=== PATIENT | female | born 1960 | race Caucasian/White ===

== ENCOUNTER → 2016-09-11 | Outpatient (REF) | payer OTHER ==
[~2016-09-11] MED LIST: ADV100INH INH; ALBU17IN INH; ASPI81CH3 PO; AZEL0.1S3; BUDE180INH INH; BUSP10TA PO; CALCTAB68 PO; CLAR1TAB2 PO; COLA100C PO; EPIP0.3I2 IJ; ESTR0.5T3 TOP; FLON0.054; FOLI1TAB2 PO; HYDR12.55 PO; LEXA1TAB2 PO; MAGN1TAB25 PO; METO25TAB PO; MIRA33504 PO; MOBI7.5T10 PO; MULTCAP PO; OMEP20CA3 PO; PRED1SUS AS; PROT1TAB2 PO; RANI150T PO; SENN8.6T7 PO; SERO50TA PO; SING10TA32 PO; TRAZ50TA4 PO; ULTR50TA PO; VAGI10TA VA; VITA250T19 PO; WELLTAB40 PO; ZYRT10TA2 PO
== END ==
LOC: M SFHCSACK 10:46
PROVIDERS: ATTEND Physician Assistant
DX: Z11.59 Encounter for screening for other viral diseases (principal)

== ENCOUNTER → 2016-12-05 | Outpatient (REF) | payer OTHER ==
[~2016-12-05] MED LIST changes: -COLA100C PO; +COLA100C3 PO
[2016-12-05 15:11] LABS: RBC ADVIA BF 0.33; RBC CALC. BF 330000 (< 10mm3 cells/uL); WBC ADVIA BF 0.9; WBC CALC. BF 900 cells/uL (0-20)
[2016-12-05 15:38] LABS: BF DIFF IF INDICATED? YES (NO); SYNOVIAL FLUID COLOR RED (YELLOW)
[2016-12-05 16:42] LABS: URIC ACID 5.4 MG/DL (2.6-6.0)
[2016-12-05 16:43] LABS: BASO % 0.8 % (0.0-1.0); EOS # 0.1 K/mm3 (0.0-0.50); EOS % 2.9 % (0.0-3.0); LARGE UNSTAINED CELL # 0.1 K/mm3 (0.0-0.4); LARGE UNSTAINED CELL % 2.3 % (0.0-4.0); LYMPH # 1.2 K/mm3 (1.5-4.5); LYMPH % 37.4 % (24.0-44.0); MEAN CORPUSCULAR HEMOGLOBIN 35.2 pg (27.0-33.0); MEAN CORPUSCULAR HGB CONC 34.1 g/dl (32.0-36.5); MEAN CORPUSCULAR VOLUME 103.4 fl (80.0-96.0); MONO # 0.2 K/mm3 (0.0-0.8); MONO % 6.9 % (0.0-5.0); NEUTROPHILS # 1.5 K/mm3 (1.8-7.7); NEUTROPHILS % 49.7 % (36.0-66.0); RED CELL DISTRIBUTION WIDTH 13.4 % (11.5-14.5)
[2016-12-05 17:34] LABS: PLATELET COUNT, AUTOMATED 99 k/mm3 (150-450)
[2016-12-05 17:57] LABS: CC BF DIFF EXAM CYTOCENTRIFUGE
[2016-12-05 20:52] LABS: ERYTHROCYTE SEDIMENTATION RATE 35 mm/hr (0-30)
[2016-12-06 09:57] LABS: CRYSTALS, BODY FLUID NONE SEEN (NONE SEEN)
[2016-12-06 09:58] LABS: HCT SOURCE OTHER
[2016-12-08 00:07] LABS: Lyme Disease IgG Ab 18 kDa Ban Absent (.); Lyme Disease IgG Ab 23 kDa Ban Absent (.); Lyme Disease IgG Ab 28 kDa Ban Absent (.); Lyme Disease IgG Ab 30 kDa Ban Absent (.); Lyme Disease IgG Ab 39 kDa Ban Absent (.); Lyme Disease IgG Ab 41 kDa Ban Present (.); Lyme Disease IgG Ab 45 kDa Ban Absent (.); Lyme Disease IgG Ab 58 kDa Ban Absent (.); Lyme Disease IgG Ab 66 kDa Ban Absent (.); Lyme Disease IgG Ab 93 kDa Ban Absent (.); Lyme Disease IgG West Blot Int Negative (.); Lyme Disease IgG/IgM Antibodie <0.91 ISR (0.00-0.90); Lyme Disease IgM Ab 23 kDa Ban Present (.); Lyme Disease IgM Ab 39 kDa Ban Present (.); Lyme Disease IgM Ab 41 kDa Ban Present (.); Lyme Disease IgM Ab Quantitati 0.87 index (0.00-0.79); Lyme Disease IgM West Blot Int Positive (.)
== END ==
LOC: M LAB REF 13:57
PROVIDERS: ATTEND Orthopaedic Surgery
DX: M25.562 Pain in left knee (principal)

== ENCOUNTER → 2016-12-18 | Outpatient (REF) | payer OTHER ==
[2016-12-18 16:12] LABS: ALBUMIN 4.3 GM/DL (3.2-5.2); ALKALINE PHOSPHATASE 55 U/L (45-117); ALT/SGPT 150 U/L (12-78); ANION GAP 6 MEQ/L (8-16); AST/SGOT 103 U/L (15-37); BILIRUBIN,TOTAL 1.1 MG/DL (0.2-1.0); BLOOD UREA NITROGEN 18 MG/DL (7-18); CALCIUM LEVEL 9.3 MG/DL (8.5-10.1); CARBON DIOXIDE LEVEL 32 MEQ/L (21-32); CHLORIDE LEVEL 100 MEQ/L (98-107); CHOLESTEROL LEVEL 243 MG/DL (<200); CREATININE FOR GFR 0.78 MG/DL (0.55-1.02); GLOMERULAR FILTRATION RATE > 60.0 (>51); GLUCOSE, FASTING 96 MG/DL (70-105); POTASSIUM SERUM 4.1 MEQ/L (3.5-5.1); SODIUM LEVEL 138 MEQ/L (136-145); TOTAL PROTEIN 8.2 GM/DL (6.4-8.2); TRIGLYCERIDES LEVEL 44 MG/DL (<150)
[2016-12-18 16:36] LABS: MEAN CORPUSCULAR HEMOGLOBIN 35.2 pg (27.0-33.0); MEAN CORPUSCULAR HGB CONC 33.4 g/dl (32.0-36.5); MEAN CORPUSCULAR VOLUME 105.5 fl (80.0-96.0); RED CELL DISTRIBUTION WIDTH 13.1 % (11.5-14.5); WHITE BLOOD COUNT 3.2 K/mm3 (4.0-10.0)
== END ==
LOC: M SFHCSACK 10:32
PROVIDERS: ATTEND Physician Assistant
DX: D69.6 Thrombocytopenia, unspecified (principal); I10 Essential (primary) hypertension; E78.5 Hyperlipidemia, unspecified

== ENCOUNTER → 2017-01-03 | Outpatient (REF) | payer OTHER ==
[~2017-01-03] MED LIST changes: -COLA100C3 PO; +COLA100C5 PO; -FOLI1TAB2 PO; +FOLI1TAB4 PO; +MOBI4TAB PO; -MOBI7.5T10 PO; +TRAZ50TA11 PO; -TRAZ50TA4 PO; -ULTR50TA PO; +ULTR50TA8 PO
[2017-01-03 13:49] LABS: BASO % 1.9 % (0.0-1.0); EOS # 0.1 K/mm3 (0.0-0.50); EOS % 2.9 % (0.0-3.0); LARGE UNSTAINED CELL # 0.1 K/mm3 (0.0-0.4); LARGE UNSTAINED CELL % 3.2 % (0.0-4.0); LYMPH # 0.9 K/mm3 (1.5-4.5); LYMPH % 37.4 % (24.0-44.0); MEAN CORPUSCULAR HEMOGLOBIN 34.8 pg (27.0-33.0); MEAN CORPUSCULAR HGB CONC 33.8 g/dl (32.0-36.5); MEAN CORPUSCULAR VOLUME 102.8 fl (80.0-96.0); MONO # 0.1 K/mm3 (0.0-0.8); MONO % 4.8 % (0.0-5.0); NEUTROPHILS # 1.1 K/mm3 (1.8-7.7); NEUTROPHILS % 49.8 % (36.0-66.0); RED CELL DISTRIBUTION WIDTH 13.5 % (11.5-14.5); WHITE BLOOD COUNT 2.2 K/mm3 (4.0-10.0)
[2017-01-03 14:14] LABS: ERYTHROCYTE SEDIMENTATION RATE 38 mm/hr (0-30)
[2017-01-03 14:23] LABS: PLATELET COUNT, AUTOMATED 64 k/mm3 (150-450)
== END ==
LOC: M SFHCPLAZ 13:10
PROVIDERS: ATTEND Internal Medicine Infectious Disease
DX: A69.20 Lyme disease, unspecified (principal)

== ENCOUNTER → 2017-01-23 | Outpatient (CLI) | payer OTHER | LOC: M LAB 14:15 | PROVIDERS: ATTEND Internal Medicine Gastroenterology | DX: K70.30 Alcoholic cirrhosis of liver without ascites (principal) ==

== ENCOUNTER → 2017-01-30 | Outpatient (CLI) | payer OTHER ==
--- NOTE | 2017-01-30 10:31 | REP ---
LIMITED ABDOMINAL ULTRASOUND: 01/30/2017. COMPARISON: 03/23/2016. CLINICAL HISTORY: Alcoholic cirrhosis of liver without ascites. FINDINGS: Sonographic evaluation of the liver again shows coarsened echotexture with fatty infiltration. Liver is slightly enlarged. The left hepatic lobe is prominent. Slight lobulations of contour are consistent with chronic liver disease. The gallbladder shows no stone, sludge, wall thickening or pericholecystic fluid. Wall thickness of 2.3 mm is normal. No visible mass. Common duct is 6.4 mm without a common duct stone. Pancreas is very limited in evaluation due to gas shadowing. The right kidney 11.3 x 5.5 x 4.4 cm. 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 Linear echogenicities in the hilum suggest vascular calcifications. IMPRESSION: 1. Coarsened echotexture, fatty infiltration and enlarged liver with lobulated contours suggesting chronic liver disease, cirrhosis. 2. No discrete hepatic mass or biliary dilatation and no ascites. 3. Gallbladder and visualized pancreas unremarkable. Common duct 6.4 mm, normal. 4. Right kidney intact. Signed by Nabil Cochran MD 01/30/2017 10:44 A
== END ==
LOC: M RAD 09:21
PROVIDERS: ATTEND Internal Medicine Gastroenterology
DX: K70.30 Alcoholic cirrhosis of liver without ascites (principal); K76.0 Fatty (change of) liver, not elsewhere classified; K76.89 Other specified diseases of liver

== ENCOUNTER → 2017-01-30 | Outpatient (CLI) | payer OTHER ==
--- NOTE | 2017-01-30 14:52 | REPMRS ---
Patient History The patient states she had a clinical breast exam in 01/2017. Patient is postmenopausal and is nulliparous. Family history of pancreatic cancer in father and pancreatic cancer in mother. Reductions of both breasts, 1998. Taking unspecified hormones for 2 years. [facility] Woman Screen Mammo: January 30, 2017 - Exam #: [id number] Bilateral CC and MLO view(s) were taken. Technologist: Virginia Wilson, Technologist Prior study comparison: November 24, 2015, digital woman screen mammo performed at [facility]. December 15, 2014, digital woman screen mammo performed at [facility]. FINDINGS: The breast tissue is heterogeneously dense. This may lower the sensitivity of mammography. There has been no change in the appearance of the mammogram from the prior studies. There is a moderate amount of residual fibroglandular tissue which is fairly symmetric. There is no interval development of dominant mass, areas of architectural distortion, or clustered microcalcification typical of malignancy. ASSESSMENT: BI-RADS/ACR category 1 mammogram. Negative. Recommendation Routine screening mammogram in 1 year (for women over age 40). This mammogram was interpreted with the aid of an FDA-approved computer-aided dectection system. Electronically Signed By: Yeison Mello MD 01/30/17 [id number]
== END ==
LOC: M WHC 13:15
PROVIDERS: ATTEND Nurse Practitioner Family
DX: Z12.31 Encounter for screening mammogram for malignant neoplasm of breast (principal)

== ENCOUNTER → 2017-03-07 | Outpatient (REF) | payer OTHER ==
[2017-03-07 16:06] LABS: ADD MANUAL DIFFER YES; DIFF SLIDE NUMBER 203; MEAN CORPUSCULAR HEMOGLOBIN 35.5 pg (27.0-33.0); MEAN CORPUSCULAR HGB CONC 34.5 g/dl (32.0-36.5); MEAN CORPUSCULAR VOLUME 102.9 fl (80.0-96.0); RED CELL DISTRIBUTION WIDTH 13.3 % (11.5-14.5)
[2017-03-07 16:08] LABS: PLATELET COUNT, AUTOMATED 53 k/mm3 (150-450)
[2017-03-07 16:09] LABS: WHITE BLOOD COUNT 1.6 K/mm3 (4.0-10.0)
[2017-03-07 16:16] LABS: ALBUMIN 4.1 GM/DL (3.2-5.2); ALBUMIN/GLOBULIN RATIO 1.14 (1.00-1.93); ALKALINE PHOSPHATASE 61 U/L (45-117); ALT/SGPT 90 U/L (12-78); ANION GAP 10 MEQ/L (8-16); AST/SGOT 109 U/L (15-37); BILIRUBIN,TOTAL 0.6 MG/DL (0.2-1.0); BLOOD UREA NITROGEN 17 MG/DL (7-18); CALCIUM LEVEL 8.5 MG/DL (8.5-10.1); CARBON DIOXIDE LEVEL 25 MEQ/L (21-32); CHLORIDE LEVEL 106 MEQ/L (98-107); CHOLESTEROL LEVEL 272 MG/DL (<200); CREATININE FOR GFR 0.56 MG/DL (0.55-1.02); FREE T4 0.84 NG/DL (0.76-1.46); GLOMERULAR FILTRATION RATE > 60.0 (>51); GLUCOSE, FASTING 97 MG/DL (70-105); POTASSIUM SERUM 3.4 MEQ/L (3.5-5.1); SODIUM LEVEL 141 MEQ/L (136-145); TOTAL PROTEIN 7.7 GM/DL (6.4-8.2); TRIGLYCERIDES LEVEL 68 MG/DL (<150)
[2017-03-07 18:10] LABS: ANISOCYTOSIS 1+
== END ==
LOC: M SFHCSACK 10:51
PROVIDERS: ATTEND Physician Assistant
DX: E78.5 Hyperlipidemia, unspecified (principal); I10 Essential (primary) hypertension; F41.9 Anxiety disorder, unspecified

== ENCOUNTER → 2017-03-12 | Outpatient (REF) | payer OTHER | LOC: M SFHCSACK 15:21 | PROVIDERS: ATTEND Physician Assistant | DX: D64.9 Anemia, unspecified (principal) ==

== ENCOUNTER → 2017-05-09 | Outpatient (REF) | payer OTHER ==
[2017-05-09 14:42] LABS: PERCENT SATURATION 3.4 % (13.2-45.0)
[2017-05-09 15:25] LABS: RETIC SCAT POS FLAG
[2017-05-09 15:26] LABS: RETIC HEMOGLOBIN EQUIVALENT 16.3 pg (24-36); RETICULOCYTE % 1.4 % (0.5-1.5)
[2017-05-11 00:07] LABS: SOLUBLE TRANSFERRIN RECEPTOR 75.7 nmol/L (12.2-27.3)
[2017-05-11 11:27] LABS: PRETREATED FOLATE FOR RBCFOL 6.9 NG/ML
== END ==
LOC: M LAB REF 13:27
PROVIDERS: ATTEND Internal Medicine Medical Oncology
DX: D61.818 Other pancytopenia (principal)

== ENCOUNTER → 2017-05-25 | Outpatient (REF) | payer OTHER ==
[2017-05-25 14:39] LABS: FREE T4 0.84 NG/DL (0.76-1.46); PERCENT SATURATION 3.4 % (13.2-45.0)
== END ==
LOC: M LAB REF 13:36
PROVIDERS: ATTEND Internal Medicine Medical Oncology
DX: D61.818 Other pancytopenia (principal)

== ENCOUNTER 2017-07-16 16:18 | Inpatient (IN) | payer OTHER ==
[2017-07-16 17:17] LABS: HEMATOCRIT 21.4 % (36.0-47.0)
[2017-07-16 17:21] LABS: HEMOGLOBIN 6.3 g/dl (12.0-16.0)
[2017-07-16] MEDS ORDERED: OXAZEPAM 10 MG CAP PO ×2 (18:30)
[2017-07-16 18:38] LABS: RETIC HEMOGLOBIN EQUIVALENT 18.5 pg (24-36); RETICULOCYTE # 42.3 10^9/L (17-77)
[2017-07-16 18:39] LABS: POS COUNT POS FLAG
[2017-07-16 18:40] LABS: RETICULOCYTE % 1.9 % (0.5-1.5)
[2017-07-16] MEDS ORDERED: IPRATROPIUM 0.5MG/ALBUTEROL 2.5MG INH SOL UD 3ML (DUONEB)(J7620) NEB (18:45)
[2017-07-16] MEDS ORDERED: ONDANSETRON 4MG/2ML VIAL (J2405) IV (18:45)
[2017-07-16] MEDS ORDERED: ACETAMINOPHEN TAB 650MG DOSE (2X325MG) PO (18:45)
[2017-07-16 19:33] LABS: REASON FOR REVIEW COMPREHENSIVE REVIEW; SLIDE REVIEW Report; SOURCE PERIPHERAL SMEAR
[2017-07-16] MEDS ORDERED: PANTOPRAZOLE 40MG INJ (PROTONIX) (C9113) IV (21:00)
[2017-07-16] MEDS ORDERED: FAMOTIDINE 20 MG TAB PO (21:00)
[2017-07-16] MEDS: GOLYTELY SOLN 4000 ML BTL PO (21:30)
[2017-07-16 21:48] LABS: IMMEDIATE SPIN CROSSMATCH 1 2
[2017-07-16] MEDS: PANTOPRAZOLE SODIUM 40 MG in D5W 50 ML IV (22:22)
[2017-07-16] MEDS: METOPROLOL TART 25 MG TABLET PO (22:22)
[2017-07-16] MEDS: MOM 30ML SUSPENSION UDC PO (22:22)
[2017-07-16] MEDS: CALCIUM/VITAMIN D 500 MG TAB PO (22:43)
[2017-07-16 22:53] LABS: HEMATOCRIT 23.7 % (36.0-47.0); HEMOGLOBIN 7.1 g/dl (12.0-16.0)
[2017-07-16 23:14] LABS: INR 0.99; PROTHROMBIN TIME 13.2 SECONDS (12.4-14.5)
[2017-07-16 23:15] LABS: PARTIAL THROMBOPLASTIN TIME 32.6 SECONDS (26.8-37.9)
[2017-07-16 23:25] LABS: NT-PRO BNP 108 PG/ML (<125)
[2017-07-17] MEDS: PANTOPRAZOLE SODIUM 40 MG in D5W 50 ML IV ×4 (02:44→15:00)
[2017-07-17] MEDS: GOLYTELY SOLN 4000 ML BTL PO (04:57)
[2017-07-17 07:48] LABS: HEMATOCRIT 26.9 % (36.0-47.0); HEMOGLOBIN 8.4 g/dl (12.0-16.0); MEAN CORPUSCULAR HEMOGLOBIN 28.4 pg (27.0-33.0); MEAN CORPUSCULAR HGB CONC 31.2 g/dl (32.0-36.5); MEAN CORPUSCULAR VOLUME 90.9 fl (80.0-96.0); PLATELET COUNT, AUTOMATED 212 10^3/uL (150-450); RED BLOOD COUNT 2.96 10^6/uL (4.00-5.40); RED CELL DISTRIBUTION WIDTH 24.2 % (11.5-14.5); WHITE BLOOD COUNT 3.4 10^3/uL (4.0-10.0)
[2017-07-17 08:18] LABS: ALBUMIN 3.8 GM/DL (3.2-5.2); ALBUMIN/GLOBULIN RATIO 1.03 (1.00-1.93); ALKALINE PHOSPHATASE 72 U/L (45-117); ALT/SGPT 90 U/L (12-78); ANION GAP 6 MEQ/L (8-16); AST/SGOT 95 U/L (7-37); BILIRUBIN,DIRECT 0.3 MG/DL (0.0-0.2); BLOOD UREA NITROGEN 9 MG/DL (7-18); CALCIUM LEVEL 9.3 MG/DL (8.5-10.1); CARBON DIOXIDE LEVEL 27 MEQ/L (21-32); CHLORIDE LEVEL 106 MEQ/L (98-107); CREATININE FOR GFR 0.71 MG/DL (0.55-1.02); FERRITIN 22 NG/ML (8-252); GLOMERULAR FILTRATION RATE > 60.0 (>51); GLUCOSE, FASTING 99 MG/DL (70-100); IRON (FE) 46 UG/DL (50-170); MAGNESIUM LEVEL 2.2 MG/DL (1.8-2.4); PERCENT SATURATION 10.7 % (13.2-45.0); POTASSIUM SERUM 3.9 MEQ/L (3.5-5.1); SODIUM LEVEL 139 MEQ/L (136-145); TOTAL IRON BINDING CAPACITY 430 UG/DL (250-450); TOTAL PROTEIN 7.5 GM/DL (6.4-8.2)
[2017-07-17 08:32] LABS: FOLATE 11.5 NG/ML (>5.4); VITAMIN B12 LEVEL 401 PG/ML (247-911)
[2017-07-17] MEDS ORDERED: traZODone 25MG PER 1/2 TABLET PO ×2 (09:00→21:00)
[2017-07-17] MEDS: TIOTROPIUM INHALER/CAPSULE (SPIRIVA) INH (09:35)
[2017-07-17] MEDS: FLUTICASONE PROP 0.05% NASAL SPRAY 16 GM (FLONASE) (10:13)
[2017-07-17] MEDS: MULTIVITAMINS/MINERALS THERAP 1 TAB PO (10:14)
[2017-07-17] MEDS: THIAMINE 100 MG TAB PO (10:14)
[2017-07-17] MEDS: FOLIC ACID 1 MG TAB PO (10:14)
[2017-07-17] MEDS: ESCITALOPRAM OXALATE 10 MG TAB (LEXAPRO) PO (10:14)
[2017-07-17] MEDS: CALCIUM/VITAMIN D 500 MG TAB PO (10:14)
[2017-07-17] MEDS: CETIRIZINE (ZyrTEC) 10 MG TAB PO (10:14)
[2017-07-17] MEDS: METOPROLOL TART 25 MG TABLET PO (10:21)
[2017-07-17 10:52] LABS: HEMATOCRIT 26.6 % (36.0-47.0); HEMOGLOBIN 8.4 g/dl (12.0-16.0)
[2017-07-17] MEDS ORDERED: PROPOFOL 200 MG/20 ML VIAL As Ordered ×3 (14:57→14:58)
[2017-07-17] MEDS ORDERED: LIDOCAINE 2% INJ 100 MG/5 ML SDV (FOR ANES.) As Ordered (14:57)
== END 2017-07-17 19:24 | disposition home or self-care (01) | DRG 253 ==
LOC: M ED 16:18 → M ED INP 19:27
PROVIDERS: Specialist
PROC: 0DBE8ZX Excision of Large Intestine, Via Natural or Artificial Opening Endoscopic, Diagnostic (ICD-10-PCS; principal; 2017-07-17 13:45)
PROC: 0DJ08ZZ Inspection of Upper Intestinal Tract, Via Natural or Artificial Opening Endoscopic (ICD-10-PCS; 2017-07-17 13:45)
DX: K92.2 Gastrointestinal hemorrhage, unspecified (principal); K70.30 Alcoholic cirrhosis of liver without ascites; F32.9 Major depressive disorder, single episode, unspecified; I10 Essential (primary) hypertension; F10.21 Alcohol dependence, in remission; D50.9 Iron deficiency anemia, unspecified; K92.1 Melena; F41.1 Generalized anxiety disorder; K58.9 Irritable bowel syndrome, unspecified; J45.909 Unspecified asthma, uncomplicated; M06.9 Rheumatoid arthritis, unspecified; K21.9 Gastro-esophageal reflux disease without esophagitis; Z79.899 Other long term (current) drug therapy; Z91.038 Other insect allergy status; Z88.2 Allergy status to sulfonamides; Z88.0 Allergy status to penicillin; Z88.8 Allergy status to other drugs, medicaments and biological substances; Z86.19 Personal history of other infectious and parasitic diseases; K64.8 Other hemorrhoids; K63.5 Polyp of colon

== ENCOUNTER → 2017-07-16 | Outpatient (REF) | payer OTHER ==
[2017-07-16 14:41] LABS: BASO % 1.1 % (0.0-1.0); EOS % 1.5 % (0.0-3.0); HEMATOCRIT 21.3 % (36.0-47.0); IMMATURE GRANULOCYTE % 0.4 % (0-0); LYMPH # 0.8 10^3/uL (1.5-4.5); LYMPH % 30.4 % (24.0-44.0); MEAN CORPUSCULAR HEMOGLOBIN 29.1 pg (27.0-33.0); MEAN CORPUSCULAR VOLUME 96.8 fl (80.0-96.0); MONO # 0.6 10^3/uL (0.0-0.8); MONO % 20.4 % (0.0-5.0); NEUTROPHILS # 1.3 10^3/uL (1.8-7.7); NEUTROPHILS % 46.2 % (36.0-66.0); PLATELET COUNT, AUTOMATED 198 10^3/uL (150-450); RED CELL DISTRIBUTION WIDTH 27.1 % (11.5-14.5); WHITE BLOOD COUNT 2.7 10^3/uL (4.0-10.0)
[2017-07-16 14:54] LABS: ALBUMIN 3.5 GM/DL (3.2-5.2); ALBUMIN/GLOBULIN RATIO 1.03 (1.00-1.93); ALKALINE PHOSPHATASE 69 U/L (45-117); ALT/SGPT 89 U/L (12-78); ANION GAP 6 MEQ/L (8-16); AST/SGOT 78 U/L (7-37); BILIRUBIN,TOTAL 0.4 MG/DL (0.2-1.0); BLOOD UREA NITROGEN 10 MG/DL (7-18); CALCIUM LEVEL 8.9 MG/DL (8.5-10.1); CARBON DIOXIDE LEVEL 29 MEQ/L (21-32); CHLORIDE LEVEL 102 MEQ/L (98-107); CHOLESTEROL LEVEL 130 MG/DL (<200); CHOLESTEROL RISK RATIO 1.969 (<5); CREATININE FOR GFR 0.65 MG/DL (0.55-1.02); FERRITIN 22 NG/ML (8-252); GLOMERULAR FILTRATION RATE > 60.0 (>51); GLUCOSE, FASTING 96 MG/DL (70-100); HDL CHOLESTEROL 66 MG/DL (>40); IRON (FE) 15 UG/DL (50-170); LDL CHOLESTEROL 54.6 MG/DL (<100); MAGNESIUM LEVEL 2.1 MG/DL (1.8-2.4); NON-HDL-C 64 MG/DL; PERCENT SATURATION 3.7 % (13.2-45.0); POTASSIUM SERUM 4.4 MEQ/L (3.5-5.1); SODIUM LEVEL 137 MEQ/L (136-145); TOTAL IRON BINDING CAPACITY 410 UG/DL (250-450); TOTAL PROTEIN 6.9 GM/DL (6.4-8.2); TRIGLYCERIDES LEVEL 47 MG/DL (<150)
[2017-07-16 14:59] LABS: TOTAL 25(OH) VITAMIN D 34.2 NG/ML (30.0-100.0)
[2017-07-16 15:16] LABS: HEMOGLOBIN 6.4 g/dl (12.0-16.0)
== END ==
LOC: M SFHCSACK 08:30
DX: D64.9 Anemia, unspecified (principal); E78.5 Hyperlipidemia, unspecified; E55.9 Vitamin D deficiency, unspecified
CPT/HCPCS: 83550

== ENCOUNTER → 2017-07-31 | Outpatient (CLI) | payer OTHER ==
[2017-07-31 10:50] LABS: ALPHA FETOPROTEIN TUMOR QUANT 4.4 NG/ML (<8.1)
== END ==
LOC: M LAB 08:29
DX: K70.30 Alcoholic cirrhosis of liver without ascites (principal)
CPT/HCPCS: 76705

== ENCOUNTER → 2017-09-06 | Outpatient (REF) | payer OTHER ==
[2017-09-06 20:04] LABS: FERRITIN 80 NG/ML (8-252); IRON (FE) 167 UG/DL (50-170); PERCENT SATURATION 37.4 % (13.2-45.0); TOTAL IRON BINDING CAPACITY 447 UG/DL (250-450)
== END ==
LOC: M LAB REF 17:39
DX: D50.9 Iron deficiency anemia, unspecified (principal)

== ENCOUNTER → 2017-09-10 | Outpatient (REF) | payer OTHER | LOC: M LAB REF 13:05 | DX: D61.818 Other pancytopenia (principal) | CPT/HCPCS: 88300 ==

== ENCOUNTER → 2017-10-25 | Outpatient (REF) | payer OTHER ==
[2017-10-25 13:32] LABS: BASO % 0.7 % (0.0-1.0); EOS # 0.1 10^3/uL (0.0-0.50); EOS % 1.6 % (0.0-3.0); HEMATOCRIT 33.2 % (36.0-47.0); HEMOGLOBIN 11.1 g/dl (12.0-15.5); IMMATURE GRANULOCYTE % 0.3 % (0-3.0); LYMPH # 0.8 10^3/uL (1.5-4.5); LYMPH % 24.4 % (24.0-44.0); MEAN CORPUSCULAR HEMOGLOBIN 28.9 pg (27.0-33.0); MEAN CORPUSCULAR HGB CONC 33.4 g/dl (32.0-36.5); MEAN CORPUSCULAR VOLUME 86.5 fl (80.0-96.0); MONO # 0.4 10^3/uL (0.0-0.8); MONO % 11.4 % (0.0-5.0); NEUTROPHILS # 1.9 10^3/uL (1.8-7.7); NEUTROPHILS % 61.6 % (36.0-66.0); RED BLOOD COUNT 3.84 10^6/uL (4.00-5.40); RED CELL DISTRIBUTION WIDTH 17.2 % (11.5-14.5); WHITE BLOOD COUNT 3.1 10^3/uL (4.0-10.0)
[2017-10-25 14:11] LABS: PLATELET COUNT, AUTOMATED 71 10^3/uL (150-450)
[2017-10-25 14:12] LABS: IMMATURE PLATELET FRACTION % 10.4 % (0.0-9.6); PLATELET F 75
[2017-10-25 15:11] LABS: ALBUMIN 4.3 GM/DL (3.2-5.2); ALBUMIN/GLOBULIN RATIO 1.05 (1.00-1.93); ALKALINE PHOSPHATASE 72 U/L (45-117); ALT/SGPT 64 U/L (12-78); ANION GAP 9 MEQ/L (8-16); AST/SGOT 77 U/L (7-37); BLOOD UREA NITROGEN 17 MG/DL (7-18); CARBON DIOXIDE LEVEL 24 MEQ/L (21-32); CHLORIDE LEVEL 106 MEQ/L (98-107); CREATININE FOR GFR 0.71 MG/DL (0.55-1.30); FERRITIN 95 NG/ML (8-252); GLOMERULAR FILTRATION RATE > 60.0 (>51); GLUCOSE, FASTING 103 MG/DL (70-100); IRON (FE) 75 UG/DL (50-170); PERCENT SATURATION 17.2 % (13.2-45.0); POTASSIUM SERUM 3.9 MEQ/L (3.5-5.1); SODIUM LEVEL 139 MEQ/L (136-145); TOTAL IRON BINDING CAPACITY 435 UG/DL (250-450); TOTAL PROTEIN 8.4 GM/DL (6.4-8.2)
== END ==
LOC: M SFHCSACK 11:44
DX: D53.9 Nutritional anemia, unspecified (principal); E78.5 Hyperlipidemia, unspecified; E83.42 Hypomagnesemia

== ENCOUNTER → 2018-03-06 | Outpatient (REF) | payer OTHER ==
[2018-03-06 10:21] LABS: BASO # 0.1 10^3/uL (0.0-0.2); EOS # 0.1 10^3/uL (0.0-0.50); EOS % 1.9 % (0.0-3.0); HEMATOCRIT 36.9 % (36.0-47.0); HEMOGLOBIN 11.9 g/dl (12.0-15.5); IMMATURE GRANULOCYTE % 0.2 % (0-3.0); LYMPH # 1.2 10^3/uL (1.5-4.5); LYMPH % 24.1 % (24.0-44.0); MEAN CORPUSCULAR HEMOGLOBIN 30.1 pg (27.0-33.0); MEAN CORPUSCULAR HGB CONC 32.2 g/dl (32.0-36.5); MEAN CORPUSCULAR VOLUME 93.4 fl (80.0-96.0); MONO # 0.6 10^3/uL (0.0-0.8); MONO % 12.4 % (0.0-5.0); NEUTROPHILS # 2.9 10^3/uL (1.8-7.7); NEUTROPHILS % 60.4 % (36.0-66.0); PLATELET COUNT, AUTOMATED 207 10^3/uL (150-450); RED BLOOD COUNT 3.95 10^6/uL (4.00-5.40); RED CELL DISTRIBUTION WIDTH 15.7 % (11.5-14.5); WHITE BLOOD COUNT 4.8 10^3/uL (4.0-10.0)
[2018-03-06 11:09] LABS: ESTIMATED AVERAGE GLUCOSE 94 MG/DL (60-110); HEMOGLOBIN A1c 4.9 %
[2018-03-06 11:10] LABS: ALBUMIN 3.8 GM/DL (3.2-5.2); ALBUMIN/GLOBULIN RATIO 0.93 (1.00-1.93); ALKALINE PHOSPHATASE 75 U/L (45-117); ALT/SGPT 133 U/L (12-78); ANION GAP 7 MEQ/L (8-16); AST/SGOT 128 U/L (7-37); BILIRUBIN,TOTAL 0.6 MG/DL (0.2-1.0); BLOOD UREA NITROGEN 13 MG/DL (7-18); CALCIUM LEVEL 9.2 MG/DL (8.5-10.1); CARBON DIOXIDE LEVEL 29 MEQ/L (21-32); CHLORIDE LEVEL 104 MEQ/L (98-107); CHOLESTEROL LEVEL 154 MG/DL (<200); CHOLESTEROL RISK RATIO 2.851 (<5); CREATININE FOR GFR 0.78 MG/DL (0.55-1.30); FERRITIN 57 NG/ML (8-252); FREE T4 0.91 NG/DL (0.76-1.46); GLOMERULAR FILTRATION RATE > 60.0 (>51); GLUCOSE, FASTING 96 MG/DL (70-100); HDL CHOLESTEROL 54 MG/DL (>40); IRON (FE) 253 UG/DL (50-170); LDL CHOLESTEROL 83 MG/DL (<100); NON-HDL-C 100 MG/DL; POTASSIUM SERUM 4.3 MEQ/L (3.5-5.1); SODIUM LEVEL 140 MEQ/L (136-145); TOTAL 25(OH) VITAMIN D 55.8 NG/ML (30.0-100.0); TOTAL IRON BINDING CAPACITY 396 UG/DL (250-450); TOTAL PROTEIN 7.9 GM/DL (6.4-8.2); TRIGLYCERIDES LEVEL 87 MG/DL (<150)
[2018-03-06 12:52] LABS: PERCENT SATURATION 63.9 % (13.2-45.0)
== END ==
LOC: M SFHCSACK 09:09
DX: D50.0 Iron deficiency anemia secondary to blood loss (chronic) (principal); E78.5 Hyperlipidemia, unspecified; Z13.29 Encounter for screening for other suspected endocrine disorder; R73.09 Other abnormal glucose; E55.9 Vitamin D deficiency, unspecified

== ENCOUNTER → 2018-03-19 | Outpatient (CLI) | payer OTHER ==
[2018-03-19 12:54] LABS: INR 1.05; PROTHROMBIN TIME 13.8 SECONDS (12.1-14.4)
[2018-03-19 12:55] LABS: PARTIAL THROMBOPLASTIN TIME 33.6 SECONDS (25.4-37.6)
[2018-03-19 13:45] LABS: ALBUMIN 3.8 GM/DL (3.2-5.2); ALKALINE PHOSPHATASE 76 U/L (45-117); ALT/SGPT 63 U/L (12-78); AST/SGOT 56 U/L (7-37); BILIRUBIN,DIRECT 0.2 MG/DL (0.0-0.2); BILIRUBIN,TOTAL 0.4 MG/DL (0.2-1.0); TOTAL PROTEIN 7.6 GM/DL (6.4-8.2)
[2018-03-22 10:25] LABS: ALPHA FETOPROTEIN TUMOR QUANT 4.8 NG/ML (<8.1)
== END ==
LOC: M LAB 12:10
DX: K70.30 Alcoholic cirrhosis of liver without ascites (principal)
CPT/HCPCS: 80076

== ENCOUNTER → 2018-03-21 | Outpatient (CLI) | payer OTHER | LOC: M RAD 09:06 | DX: K70.30 Alcoholic cirrhosis of liver without ascites (principal) | CPT/HCPCS: 76705 ==

== ENCOUNTER → 2018-05-08 | Outpatient (CLI) | payer OTHER | LOC: M RAD 12:36 | DX: R93.7 Abnormal findings on diagnostic imaging of other parts of musculoskeletal system (principal); D69.6 Thrombocytopenia, unspecified | CPT/HCPCS: 72220 ==

== ENCOUNTER → 2018-07-10 | Outpatient (CLI) | payer OTHER ==
[~2018-07-10] MED LIST changes: +BREO1INH INH; +CELE40TA PO; +CITA20TA4 PO; -EPIP0.3I2 IJ; +EPIP0.3I2 IM; +ESTR62CR PV; +FERR28TA PO; +FERR324T2 PO; +FOLI1TAB11 PO; -FOLI1TAB4 PO; +HYDR-3363 PO; +MELO15TA28 PO; +POTA99TA PO; -PRED1SUS AS; +PRED1SUS2 AS; +PYRI25TA4 PO; +SIMV20TA2 PO; +THIA100T7 PO; +TRAZ-160 PO; -TRAZ50TA11 PO; +ZYRT10CA5 PO; -ZYRT10TA2 PO
== END ==
LOC: M INFU 08:00
PROVIDERS: ATTEND Internal Medicine Hematology & Oncology
DX: D69.6 Thrombocytopenia, unspecified (principal); Z53.8 Procedure and treatment not carried out for other reasons

== ENCOUNTER → 2018-08-26 | Outpatient (REF) | payer OTHER ==
[2018-08-26 15:02] LABS: EOS # 0.1 10^3/uL (0.0-0.50); EOS % 1.7 % (0.0-3.0); HEMATOCRIT 36.2 % (36.0-47.0); HEMOGLOBIN 12.3 g/dl (12.0-15.5); LYMPH # 0.8 10^3/uL (1.5-4.5); LYMPH % 28.7 % (24.0-44.0); MEAN CORPUSCULAR HEMOGLOBIN 31.9 pg (27.0-33.0); MEAN CORPUSCULAR VOLUME 93.8 fl (80.0-96.0); MONO # 0.3 10^3/uL (0.0-0.8); MONO % 11.2 % (0.0-5.0); NEUTROPHILS # 1.6 10^3/uL (1.8-7.7); NEUTROPHILS % 57.1 % (36.0-66.0); RED BLOOD COUNT 3.86 10^6/uL (4.00-5.40); WHITE BLOOD COUNT 2.9 10^3/uL (4.0-10.0)
[2018-08-26 15:08] LABS: BLOOD UREA NITROGEN 19 MG/DL (7-18); CARBON DIOXIDE LEVEL 24 MEQ/L (21-32); CHLORIDE LEVEL 104 MEQ/L (98-107); CREATININE FOR GFR 0.77 MG/DL (0.55-1.30); GLOMERULAR FILTRATION RATE > 60.0 (>51); GLUCOSE, FASTING 102 MG/DL (70-100); POTASSIUM SERUM 4.3 MEQ/L (3.5-5.1); SODIUM LEVEL 137 MEQ/L (136-145)
[2018-08-26 15:09] LABS: ALBUMIN 4.1 GM/DL (3.2-5.2); ALT/SGPT 133 U/L (12-78); CALCIUM LEVEL 9.3 MG/DL (8.5-10.1); CHOLESTEROL LEVEL 232 MG/DL (<200); CHOLESTEROL RISK RATIO 2.367 (<5); FERRITIN 428 NG/ML (8-252); HDL CHOLESTEROL 98 MG/DL (>40); IRON (FE) 43 UG/DL (50-170); LDL CHOLESTEROL 123 MG/DL (<100); NON-HDL-C 134 MG/DL; PERCENT SATURATION 9.5 % (13.2-45.0); TOTAL IRON BINDING CAPACITY 453 UG/DL (250-450); TOTAL PROTEIN 8.4 GM/DL (6.4-8.2); TRIGLYCERIDES LEVEL 56 MG/DL (<150)
[2018-08-26 15:12] LABS: TOTAL 25(OH) VITAMIN D 31.9 NG/ML (30.0-100.0)
[2018-08-26 15:26] LABS: PLATELET COUNT, AUTOMATED 96 10^3/uL (150-450)
== END ==
LOC: M SFHCSACK 10:16
PROVIDERS: ATTEND Physician Assistant
DX: D69.6 Thrombocytopenia, unspecified (principal); E78.5 Hyperlipidemia, unspecified; D50.0 Iron deficiency anemia secondary to blood loss (chronic); E55.9 Vitamin D deficiency, unspecified

== ENCOUNTER → 2018-08-29 | Outpatient (CLI) | payer OTHER ==
[2018-08-29 09:56] LABS: BASO % 0.8 % (0.0-1.0); EOS % 1.1 % (0.0-3.0); HEMATOCRIT 36.4 % (36.0-47.0); HEMOGLOBIN 11.9 g/dl (12.0-15.5); LYMPH # 0.8 10^3/uL (1.5-4.5); LYMPH % 29.7 % (24.0-44.0); MEAN CORPUSCULAR HEMOGLOBIN 29.5 pg (27.0-33.0); MEAN CORPUSCULAR HGB CONC 32.7 g/dl (32.0-36.5); MEAN CORPUSCULAR VOLUME 90.1 fl (80.0-96.0); MONO # 0.4 10^3/uL (0.0-0.8); MONO % 14.7 % (0.0-5.0); NEUTROPHILS # 1.4 10^3/uL (1.8-7.7); NEUTROPHILS % 53.3 % (36.0-66.0); PLATELET COUNT, AUTOMATED 103 10^3/uL (150-450); RED BLOOD COUNT 4.04 10^6/uL (4.00-5.40); WHITE BLOOD COUNT 2.7 10^3/uL (4.0-10.0)
[2018-08-29 10:06] LABS: INR 1.09; PROTHROMBIN TIME 14.2 SECONDS (12.1-14.4)
[2018-08-29 10:14] LABS: ALBUMIN 4.2 GM/DL (3.2-5.2); BILIRUBIN,DIRECT 0.2 MG/DL (0.0-0.2); BILIRUBIN,TOTAL 0.6 MG/DL (0.2-1.0); TOTAL PROTEIN 8.1 GM/DL (6.4-8.2)
--- NOTE | 2018-08-29 17:01 | REP ---
Clinical: Alcoholic cirrhosis. Technique: Real time leach scale and color evaluation using curved array transducer. Comparison: 03/21/2018. Findings: Liver demonstrates coarsened echotexture consistent with hepatocellular disease, but no focal hepatic lesion identified. Pancreas is incompletely evaluated due to interposed bowel gas but visualized portions appear normal. The gallbladder is normal and without gallstones, wall thickening, or pericholecystic fluid. No biliary ductal dilatation is appreciated and the common bile duct measures 3.0 mm diameter. The right kidney is normal in reniform shape without hydronephrosis and measures 11.0 x 5.3 x 5.1 cm. No ascites. Impression: 1. Consistent with hepatocellular disease and cirrhosis. No focal hepatic lesion. Electronically Signed by Jam Reeves MD 08/29/2018 04:52 P
== END ==
LOC: M RAD 08:33
PROVIDERS: ATTEND Internal Medicine Gastroenterology
DX: K70.30 Alcoholic cirrhosis of liver without ascites (principal)